=== PATIENT | female | born 1990 | race Caucasian/White ===

== ENCOUNTER 2021-02-08 15:03 | Emergency (ER) | payer OTHER ==
[2021-02-08 15:23] LABS: HEMOGLOBIN 10.6 gm/dl (12.3-15.3); RED BLOOD COUNT 3.49 M/UL (4.00-5.10); WHITE BLOOD COUNT 7.5 K/UL (4.5-11.0)
[2021-02-08 15:44] LABS: BUN/CREATININE RATIO 19 (0-10)
== END 2021-02-08 17:05 | disposition home or self-care (01) ==
LOC: ER1 15:03
PROVIDERS: Preventive Medicine Occupational Medicine
DX: R56.9 Unspecified convulsions (principal); F15.23 Other stimulant dependence with withdrawal
CPT/HCPCS: 80053; 81001; 85025; 87086; 99284; J7030

== ENCOUNTER 2021-02-10 11:36 | Emergency (ER) | payer OTHER ==
[2021-02-10 12:46] LABS: RED BLOOD COUNT 3.58 M/UL (4.00-5.10)
[2021-02-10 12:55] LABS: BUN/CREATININE RATIO 21 (0-10)
== END 2021-02-10 13:50 | disposition home or self-care (01) ==
LOC: ER1 11:36
PROVIDERS: Physician Assistant
DX: G40.909 Epilepsy, unspecified, not intractable, without status epilepticus (principal); F19.10 Other psychoactive substance abuse, uncomplicated; Z79.899 Other long term (current) drug therapy
CPT/HCPCS: 70450; 80053; 80307; 82550; 82553; 83874; 84484; 85025; 99285